=== PATIENT | female | born 1980 | race Caucasian/White ===

== ENCOUNTER 2017-09-15 17:31 | Inpatient (IN) | payer BC ==
--- NOTE | 2017-09-15 17:32 | HP ---
SUPERVISING PHYSICIAN: Danial Jaquez MD HISTORY OF PRESENT ILLNESS: This is a 37-year-old female who presented to the hospital as a direct admit. She states she went to the football game Thursday and felt okay. On Thursday, she began to have some congestion. This progressed to the point where she had some fever as well as a cough. She went to work at [employer] on Thursday, but felt really bad and, therefore, when she came home on Thursday, she went to see Dr. Jaquez in the clinic. He saw the patient and diagnosed her with upper respiratory infection and placed her on azithromycin. She did take one dose of azithromycin. Chest x-ray came back and showed a right middle lobe pneumonia. Once this was seen, Dr. Jaquez called the patient and she admitted to not feeling very good at all. At that point, it was decided she would be admitted to the hospital for right middle lobe pneumonia with failed outpatient therapy. At time of examination, the patient is alert and oriented. She is in no respiratory distress, however, does appear mildly ill. She states she feels really worn down and does admit to a productive cough, however, has not been able to produce a sputum for us of yet. PAST MEDICAL HISTORY: 1. Asthma. 2. Previous retinal detachment with subsequent cataract formation. 3. Pneumonia in the past. PAST SURGICAL HISTORY: 1. Cataract removal. 2. section. 3. Right ankle fracture repair. 4. Superficial clot to the left leg removal. 5. Reconstruction of her right foot. 6. Lap band. 7. Retinal detachment repair. CURRENT MEDICATIONS: 1. Breo Ellipta 200/25 mcg inhaled once daily. 2. Nexium 40 mg daily. 3. Lexapro 10 mg daily. 4. Xanax 0.5 mg 1 tablet in the AM and 2 at h.s. 5. Recently placed on cefdinir 300 mg b.i.d. for 7 days along with prednisone titrating dose and azithromycin pack. ALLERGIES: PENICILLIN. FAMILY HISTORY: Mother of lung cancer and also had type 2 diabetes as well as hypertension. Sister has hyperthyroidism and factor V Leiden. A son has asthma. A daughter is healthy. She has some aunts who have had breast cancer in the past. SOCIAL HISTORY: No smoking, occasional social drinking, no illicit drugs. REVIEW OF SYSTEMS: CONSTITUTIONAL: Positive for fever. No chills, no recent weight loss or weight gain. HEENT: No headache, vision changes. She has lots of nasal congestion. She has had a sore throat. RESPIRATORY: Positive for cough. No hemoptysis, no pleuritic chest pain, no dyspnea. CARDIOVASCULAR: No chest pain, palpitations or peripheral edema. GASTROINTESTINAL: No nausea, vomiting, diarrhea, constipation or abdominal pain. GENITOURINARY: No dysuria, frequency, or flank pain. MUSCULOSKELETAL: No back pain, neck pain or joint stiffness. SKIN: No rashes, lesions or wounds. NEUROLOGIC: No headaches, vision changes, or syncope. ENDOCRINE: No polydipsia, polyuria, polyphagia, no heat or cold intolerance. PHYSICAL EXAMINATION: VITAL SIGNS: Blood pressure 124/85. Heart rate 86. Respiratory rate 16. temperature 98.7. Oxygen saturation 97%. GENERAL: Ms. Velasco is a 37-year-old female who is acutely ill at this time. HEENT: Normocephalic, atraumatic. Pupils are equal and reactive. No nasal drainage. Throat with moist mucous membranes. NECK: Full. Midline trachea. No jugular venous distention. CHEST: Equal rise and fall of the chest with inspiration and expiration. Lung sounds are a little bit diminished in the bases, otherwise clear to auscultation bilaterally. CARDIOVASCULAR: Regular rate and rhythm. Normal S1, S2. ABDOMEN: Soft, positive bowel sounds. No tenderness to palpation. GENITOURINARY: Deferred. EXTREMITIES: Lower extremities show no edema. Pulses 2+ with capillary refill less than 2 seconds. NEUROLOGIC: The patient is alert and oriented. The patient moves all extremities. Extraocular muscles are intact. LABORATORY: Labs were repeated here and show white count 4.1, hemoglobin 13.6, platelet count 193. Sodium 135, potassium 3.6, chloride 103, CO2 25, BUN 13, creatinine 0.71, glucose 142, calcium 8.9. Chest x-ray reviewed shows a congested type presentation in the right middle lobe concerning for pneumonia. Flu screen done at the clinic yesterday was reportedly negative. ASSESSMENT: 1. Right middle lobe pneumonia, failed outpatient therapy. 2. Asthma without acute exacerbation. 3. Hyperglycemia without documented history of diabetes mellitus. PLAN: 1. At this time, we will treat the patient's pneumonia with ceftriaxone as well as Levaquin. We will monitor cultures and deescalate as possible. 2. Due to the fact that she is not active wheezing and moving air appropriately , we will not administer any kind of steroids at this time. 3. Regarding hyperglycemia, we will monitor this. If she continues to have high glucoses, we can start her on a sliding scale and get a hemoglobin A1c. Otherwise, she can work up for diabetes as an outpatient. 4. DVT and GI prophylaxis. [facility][id number]
[2017-09-15] MEDS ORDERED: SODIUM CHLORIDE 0.9% (FLUSH) 10 ML SYG IV PRN (17:46)
[2017-09-15] MEDS ORDERED: levoFLOXacin 750MG IV 750 MG in PREMIX BAG 1 BAG IVPB SCH (18:00)
[2017-09-15] MEDS ORDERED: IV SET AND CAP CHANGE INJ INJ SCH (18:00)
--- NOTE | 2017-09-15 18:02 | PCM.CORE ---
Physician DVT/VTE - Nurse DVT Assessment & Total Each Risk Factor Represents 3 Points: Family Hx thrombosis Each Risk Factor is 1 Point: Serious Lung disease (pnemonia <1month, COPD, emphysema,etc) DVT Assessment Score: 4 - 3-4 High Risk Treatments: Early Ambulation *, Sequential Compression Device - 5 or more Very High Risk Pharmacological: Enoxaparin 40mg SQ Daily
[2017-09-15] MEDS ORDERED: ENOXAPARIN SODIUM 40 MG/0.4 ML SYG SUBCU SCH (18:30)
[2017-09-15] MEDS ORDERED: cefTRIAXone SODIUM 1 GM VIAL ONE (19:53)
[2017-09-15] MEDS ORDERED: SODIUM CHL 0.9% 50ML MIN-BAG+ 50 ML IVPB ONE (19:53)
[2017-09-15] MEDS: cefTRIAXone SODIUM 1 GM in SODIUM CHL 0.9% 50ML MIN-BAG+ 50 ML IVPB SCH (20:29)
[2017-09-15] MEDS: ALBUTEROL SULFATE 2.5 MG/3 ML VIAL NEB SCH (21:03)
[2017-09-15] MEDS: LACTATED RINGERS 1,000 ML IVS PRN (21:09)
[2017-09-15] MEDS ORDERED: ALPRAZolam 0.5 MG TAB PO PRN (21:37)
[2017-09-16] MEDS: OMEPRAZOLE CAP 20 MG CAP PO SCH (06:40)
[2017-09-16] MEDS: LACTATED RINGERS 1,000 ML IVS PRN (07:17)
--- NOTE | 2017-09-16 07:20 | RAD ---
Procedure: XR CHEST 2 VIEWS Exam Date: 09/16/2017 Ordering Provider: Barrington Pérez Clinical Indication: Pneumonia Comparison: 09/14/2017 Findings: Cardiomediastinal silhouette: Unremarkable Pulmonary vasculature : Unremarkable Aortic contour: Unremarkable Focal lung consolidation: No focal lung consolidation. Pleural effusion: None Pneumothorax: None Bones and soft tissues: Nonacute Impression: 1. No focal lung consolidation. Electronically signed by: Herrera Quintanilla MD 09/16/2017 7:18 AM [facility]
[2017-09-16] MEDS: ALBUTEROL SULFATE 2.5 MG/3 ML VIAL NEB SCH ×4 (08:19→20:26)
[2017-09-16] MEDS ORDERED: KCL 20 MEQ/NS 1,000 ML IVS PRN (09:36)
[2017-09-16] MEDS: NON-FORMULARY MEDICATION 1 EA MIS (Fluticasone Furoate-Vilanterol [Breo Ellipta 100-25 Mcg IN SCH (16:17)
[2017-09-16] MEDS ORDERED: SODIUM CHL 0.9% 50ML MIN-BAG+ 50 ML IVPB ONE (18:04)
[2017-09-16] MEDS ORDERED: cefTRIAXone SODIUM 1 GM VIAL ONE (18:04)
[2017-09-16] MEDS: cefTRIAXone SODIUM 1 GM in SODIUM CHL 0.9% 50ML MIN-BAG+ 50 ML IVPB SCH (18:12)
[2017-09-16] MEDS ORDERED: levoFLOXacin 750MG IV 750 MG in PREMIX BAG 1 BAG IVPB SCH (19:00)
[2017-09-16] MEDS ORDERED: ENOXAPARIN SODIUM 40 MG/0.4 ML SYG SUBCU ONE (19:43)
[2017-09-16] MEDS ORDERED: ESCITALOPRAM 10 MG TAB ONE (19:43)
[2017-09-16] MEDS ORDERED: ENOXAPARIN SODIUM 40 MG/0.4 ML SYG SUBCU SCH (21:00)
[2017-09-16] MEDS ORDERED: ESCITALOPRAM 10 MG TAB PO SCH (21:00)
[2017-09-17 02:11] VITALS: O2SAT 98
[2017-09-17] MEDS: OMEPRAZOLE CAP 20 MG CAP PO SCH (06:10)
[2017-09-17 06:16] VITALS: BP 104/72; TEMP 98
[2017-09-17] MEDS: ALBUTEROL SULFATE 2.5 MG/3 ML VIAL NEB SCH (07:12)
[2017-09-17] MEDS: NON-FORMULARY MEDICATION 1 EA MIS (Fluticasone Furoate-Vilanterol [Breo Ellipta 100-25 Mcg IN SCH (07:12)
[2017-09-17] MEDS ORDERED: SODIUM CHLORIDE 0.9% (FLUSH) 10 ML SYG IV SCH (09:00)
--- NOTE | 2017-09-17 09:17 | DS ---
SUPERVISING PHYSICIAN: Danial Jaquez MD ADMISSION DIAGNOSIS: 1. Right middle lobe pneumonia, failed outpatient therapy. 2. Asthma without acute exacerbation. 3. Hyperglycemia. DISCHARGE DIAGNOSIS: 1. Right middle lobe pneumonia, failed outpatient therapy. 2. Asthma without exacerbation. 3. Hyperglycemia, improved. HOSPITAL COURSE: This is a 37-year-old female who presented to the hospital as a direct admit at the request of Dr. Jaquez. She had gone to a football game last Thursday and felt okay during that, but on Thursday, she began to have some chest congestion and progressively got worse to the point where she had some fever as well as a productive cough. She saw Dr. Jaquez on Thursday and had some labs as well as an x-ray. The x-ray was read the next day as having a right middle lobe pneumonia. She was called and requested to come as a direct admit to the hospital. She had felt worse from Thursday to Thursday at that point. She was admitted on 09/15/17 and started on Rocephin and Levaquin in the hospital. She was also started on nebulizer therapy. At the time of admission, she was not wheezing and, therefore, her steroids were not resumed. It was noted that she did have some hyperglycemia. However, she did receive an injectable corticosteroid in the office as well as placed on prednisone. Once again, due to the fact that she was not wheezing, this was not resumed. Subsequent labs were done the days she was in the hospital as well as chest x-ray. These did not worsen and she actually improved throughout the admission. The day of discharge, the patient feels a lot better. She is not having any fever or chills. Her white count is normal. She is not having any active wheezing at this time. CONDITION UPON DISCHARGE: Fair and stable. DISCHARGE ACTIVITY: As tolerated. DIET: As per usual diet. DISCHARGE MEDICATIONS: 1. Levaquin 750 mg for the next 3 days, then discontinue. 2. We will resume all other home medications at this point as well. Discharge appointment made with Dr. Jaquez on 09/21/17 at 11:15 in the morning. She may need a workup for diabetes at some point, but I do feel that her hyperglycemia here was mostly due to the steroids she was on. #[id number] [facility]
[2017-09-18] MEDS ORDERED: NON-FORMULARY MEDICATION 1 EA MIS (Fluticasone Furoate-Vilanterol [Breo Ellipta 100-25 Mcg INH SCH (08:00)
== END 2017-09-17 10:06 | disposition home or self-care (01) | DRG 195 ==
LOC: MS 17:31
PROVIDERS: ADMIT Nurse Practitioner Family; ATTEND Nurse Practitioner Family
DX: J18.9 Pneumonia, unspecified organism (principal); J45.909 Unspecified asthma, uncomplicated; R73.9 Hyperglycemia, unspecified; Z98.84 Bariatric surgery status; Z79.899 Other long term (current) drug therapy; Z88.0 Allergy status to penicillin

== ENCOUNTER → 2017-12-10 | Outpatient (CLI) | payer BC | LOC: GMA 16:45 | PROVIDERS: ATTEND Physician Assistant | DX: R93.8 Abnormal findings on diagnostic imaging of other specified body structures (principal) ==

== ENCOUNTER → 2017-12-11 | Outpatient (CLI) | payer BC ==
--- NOTE | 2017-12-11 08:55 | US ---
EXAM DESCRIPTION: Spleen ultrasound CLINICAL HISTORY: ABDOMINAL PN, HX RUPTURED SPLEEN COMPARISON: CT of the abdomen pelvis dated to July 2012 TECHNIQUE: 2-D and color flow sonography FINDINGS: The spleen is normal sonographically. No cyst mass or fracture is detected. No free fluid is observed. IMPRESSION: Normal sonography of the spleen. Electronically signed by: Jose Whatley MD 12/11/2017 8:54 AM [facility] [employer]
== END ==
LOC: US 07:59
PROVIDERS: ATTEND Physician Assistant
DX: R10.12 Left upper quadrant pain (principal)

== ENCOUNTER → 2018-02-17 | Outpatient (CLI) | payer BC | LOC: GMAHI 16:57 | PROVIDERS: ATTEND Nurse Practitioner Family | DX: R60.0 Localized edema (principal); E66.01 Morbid (severe) obesity due to excess calories ==

== ENCOUNTER → 2019-08-08 | Outpatient (CLI) | payer BC | LOC: GMAM 10:43 | PROVIDERS: ATTEND Family Medicine | DX: Z00.00 Encounter for general adult medical examination without abnormal findings (principal) ==

== ENCOUNTER 2020-08-23 16:50 | Inpatient (IN) | payer BC ==
[2020-08-23] MEDS ORDERED: AZITHROMYCIN IV 500 MG in SODIUM CHLORIDE 0.9% 250ML 250 ML IVPB ONE (17:04)
[2020-08-23] MEDS ORDERED: DEXAMETHASONE INJ 10 MG/ML VIAL IV ONE (17:04)
[2020-08-23] MEDS ORDERED: cefTRIAXone SODIUM 1 GM in SODIUM CHL 0.9% 50ML MIN-BAG+ 50 ML IVPB ONE (17:04)
[2020-08-23] MEDS ORDERED: IPRATROPIUM/ALBUTEROL 3 ML VIAL NEB ONE (17:31)
--- NOTE | 2020-08-23 17:47 | RAD ---
EXAM DESCRIPTION: Chest,1 View CLINICAL HISTORY: 40 years Female sob, norris COMPARISON: 09/16/2017. FINDINGS: The cardiomediastinal silhouette appears unremarkable. No consolidating infiltrates or pleural effusions. No pneumothorax. IMPRESSION: No acute abnormality is identified. Electronically signed by: Jose Alejandro Morrison MD 08/23/2020 5:45 PM [facility] [employer]
[2020-08-23] MEDS ORDERED: REMDESIVIR 200 MG in SODIUM CHLORIDE 0.9% 250ML 250 ML IVPB SCH (18:00)
[2020-08-23] MEDS ORDERED: ENOXAPARIN SODIUM 100 MG/ML SYG SUBCU ONE (18:47)
--- NOTE | 2020-08-23 19:27 | CT ---
PROCEDURE: CT Angiography Chest With Intravenous Contrast CLINICAL INDICATION: The patient is 40 years old and is Female; covid, elev ddimer, left sided rales, sob TECHNIQUE: Axial computed tomographic angiography images of the chest with intravenous contrast. This CT exam was performed using one or more of the following dose reduction techniques: automated exposure control, adjustment of the mA and/or kV according to patient size, and/or use of iterative reconstruction technique. MIP reconstructed images were created and reviewed. DLP: 752 mGy*cm COMPARISON: Chest radiograph of the same day. FINDINGS: PULMONARY ARTERIES: Limited evaluation of the pulmonary arterial tree due to poor bolus timing. No central or proximal segmental pulmonary embolus. AORTA: No acute findings. No thoracic aortic aneurysm. LUNGS: No groundglass opacity or focal consolidation. Mild subsegmental atelectasis in lung bases. 1.4 cm nodule is seen in the superior segment of the right lower lobe (series 2, image 43). Additional groundglass nodule measuring 4.5 mm in the left upper lobe (series 2, image 26). PLEURAL SPACE: Unremarkable. No significant effusion. No pneumothorax. HEART: Unremarkable. No cardiomegaly. No significant pericardial effusion. No evidence of RV dysfunction. MEDIASTINUM: Small hiatal hernia. BONES/JOINTS: No acute fracture. No dislocation. Mild osteopenia. SOFT TISSUES: Unremarkable. LYMPH NODES: Unremarkable. No enlarged lymph nodes. LIVER: Hepatic steatosis. IMPRESSION: 1. Limited evaluation of the pulmonary arterial tree due to poor bolus timing. No central or proximal segmental pulmonary embolus. 2. Imaging features are atypical or uncommonly reported for COVID-19 pneumonia. Alternative diagnoses should be considered. PneAty 3. Multiple pulmonary nodules measuring up to 1.4 cm. Consider a non-contrast Chest CT at 3 months, a PET/CT, or tissue sampling. 4. Hepatic steatosis. 5. Small hiatal hernia. Electronically signed by: Chase Mobley DO 08/23/2020 7:26 PM [employer]
--- NOTE | 2020-08-23 19:40 | ED.PDOC ---
History of Present Illness - General Chief Complaint: Respiratory Problem Stated Complaint: cough, SOB, chest tightness, body aches Time Seen by Provider: 08/23/20 17:02 Source: patient Exam Limitations: no limitations - History of Present Illness Initial Comments: The patient is a 40-year-old female presents emergency room after being sent over from the clinic secondary to a persistent asthma exacerbation, that appears to be driven by a coronavirus infection currently. She did test positive for it. The patient has significant increased work of breathing upon arrival here only able to speak 2 or 3 words at a time. She has a tripoding position. Audible wheezes without a stethoscope. Significantly decreased air movement. She denies any fever. She has had a mild sore throat a few days ago and a mild runny nose. She reports chest tightness with trying to breathe transiently. She reports increased back pain secondary to increased work of breathing over the next couple of days. Timing/Duration: other - 5 days in total Severity: severe Improving Factors: nothing Worsening Factors: nothing Associated Symptoms: chest pain, cough, malaise, shortness of breath Allergies/Adverse Reactions: Allergies Penicillins Allergy (Verified 05/29/16 15:58) Home Medications: Ambulatory Orders ALPRAZolam [Xanax] 0.5 mg PO BEDTIME PRN 05/29/16 Escitalopram [Lexapro] 10 mg PO BEDTIME 05/29/16 Fluticasone Furoate-Vilanterol [Breo Ellipta] 1 inh IN DAILY 09/15/17 Review of Systems - Review of Systems Constitutional: States: no symptoms reported EENTM: States: no symptoms reported Respiratory: States: see HPI Cardiology: States: no symptoms reported Gastrointestinal/Abdominal: States: no symptoms reported Genitourinary: States: no symptoms reported Musculoskeletal: States: back pain Skin: States: no symptoms reported Neurological: States: no symptoms reported Endocrine: States: no symptoms reported All other Systems: No Change from Baseline Past Medical History (General) - Patient Medical History Hx Seizures: No Hx Stroke: No Hx Asthma: Yes Hx of COPD: No Hx Congestive Heart Failure: No Hx Pacemaker: No Hx Hypertension: No Hx Diabetes: No Hx Cancer: No Hx Hepatitis C: No Hx MRSA: No - Vaccination History Hx Tetanus, Diphtheria Vaccination: No Hx Influenza Vaccination: Yes - Social History Hx Tobacco Use: No Hx Alcohol Use: Yes Hx Substance Use: No Hx Physical Abuse: No Hx Emotional Abuse: No - Female History Patient : No Family Medical History - Family History Mother Living Status: Hx Family Hypertension: Yes Hx Family Cancer: Yes Physical Exam - Physical Exam General Appearance: Alert, Anxious, Obvious distress Eye Exam: bilateral normal Ears, Nose, Throat: hearing grossly normal, nasal congestion, pharyngeal erythema Neck: full range of motion, supple, other - Significant accessory muscle use Respiratory: decreased breath sounds, accessory muscle use, rhonchi, wheezing Cardiovascular/Chest: normal peripheral pulses, no edema, tachycardia - Borderline Peripheral Pulses: radial,right: 2+, radial,left: 2+ Gastrointestinal/Abdominal: non tender - Obese, soft Rectal Exam: deferred Back Exam: no vertebral tenderness, other - Diffuse paraspinal muscle discomfort to palpation Extremity: normal range of motion, non-tender, normal inspection, no pedal edema, normal capillary refill Neurologic: automatic washer mechanic II-XII nml as tested, alert, normal mood/affect, oriented x 3 Skin Exam: normal color Comments: Vital Signs - 24 hr 08/23/20 08/23/20 08/23/20 17:01 17:23 17:50 Temperature 98.5 F Pulse Rate 94 H Pulse Rate [ 94 H Right Radial] Respiratory 24 22 20 Rate Blood Pressure 137/99 [Left Arm] O2 Sat by Pulse 97 96 Oximetry 08/23/20 08/23/20 18:00 19:00 Temperature Pulse Rate Pulse Rate [ 126 H 119 H Right Radial] Respiratory 22 18 Rate Blood Pressure 124/90 135/99 [Left Arm] O2 Sat by Pulse 99 98 Oximetry Progress - Progress Progress: 08/23/20 19:41 The patient is a 40-year-old female presenting with an acute coronavirus pneumonia and asthma exacerbation. The patient is being started on IV steroids and remdesivir. She is additionally been placed on Rocephin and azithromycin. Blood cultures have been done. The patient was also received several breathing treatments. This is helping reduce the respiratory distress. She still has significant increased work of breathing compared to baseline. She will be placed on low flow oxygen primarily for comfort. Admit for continued care and monitoring. If she continues to improve she may be able to go home tomorrow. The patient did receive a dose of Lovenox as well. CT angiogram of the chest was reassuring. Pulmonary nodules will need to be followed up in a few months. kortney seaman [id number] - Results/Orders Results/Orders: Chest x-ray shows no definitive pathology. CT angiogram of the chest shows no definitive pulmonary embolus. She does have a few pulmonary nodules that will need follow-up in 2 months. See report for details. Laboratory Tests 08/23/20 08/23/20 08/23/20 17:26 17:26 17:26 WBC 3.6 L RBC 4.75 Hgb 15.2 Hct 43.6 MCV 91.9 MCH 32.0 H MCHC 34.8 RDW 13.1 Plt Count 175 MPV 8.1 Absolute Neuts (auto) 2.00 Absolute Lymphs (auto) 1.10 Absolute Monos (auto) 0.40 Absolute Eos (auto) 0.00 Absolute Basos (auto) 0.00 Neutrophils % 56.7 Lymphocytes % 30.1 Monocytes % 11.3 H Eosinophils % 1.2 Basophils % 0.7 PT INR PTT (SP) Fibrinogen D-Dimer, Quantitative Sodium 139 Potassium 4.0 Chloride 103 Carbon Dioxide 25 Anion Gap 15.0 BUN 15 Creatinine 0.79 BUN/Creatinine Ratio 19.0 Random Glucose 84 Serum Osmolality 277.6 Lactic Acid Calcium 8.6 Magnesium 2.1 Ferritin 154.3 Total Bilirubin 0.7 AST 103 H ALT 150 H Alkaline Phosphatase 69 LD Total 176 Creatine Kinase 60 CK-MB (CK-2) 0.6 CK-MB (CK-2) % Not Reportable Troponin I < 0.02 C-Reactive Protein < 0.8 B-Natriuretic Peptide < 15.0 Serum Total Protein 7.8 Albumin 4.5 Globulin 3.3 Albumin/Globulin Ratio 1.4 Serum HCG, Qual 08/23/20 08/23/20 08/23/20 17:26 17:26 17:26 WBC RBC Hgb Hct MCV MCH MCHC RDW Plt Count MPV Absolute Neuts (auto) Absolute Lymphs (auto) Absolute Monos (auto) Absolute Eos (auto) Absolute Basos (auto) Neutrophils % Lymphocytes % Monocytes % Eosinophils % Basophils % PT 10.3 INR 1.04 PTT (SP) 23.3 Fibrinogen 332 D-Dimer, Quantitative 1250.0 H* Sodium Potassium Chloride Carbon Dioxide Anion Gap BUN Creatinine BUN/Creatinine Ratio Random Glucose Serum Osmolality Lactic Acid 1.1 Calcium Magnesium Ferritin Total Bilirubin AST ALT Alkaline Phosphatase LD Total Creatine Kinase CK-MB (CK-2) CK-MB (CK-2) % Troponin I C-Reactive Protein B-Natriuretic Peptide Serum Total Protein Albumin Globulin Albumin/Globulin Ratio Serum HCG, Qual Negative - EKG/XRAY/CT CT Ordered: No CT Interpretation Call Back: No Departure - Departure Clinical Impression: Pulmonary nodules, Pneumonia due to human coronavirus Asthma exacerbation Qualifiers: Asthma severity: severe Asthma persistence: persistent Qualified Code(s): J45.51 - Severe persistent asthma with (acute) exacerbation Disposition: Admit Patient Departure Forms: ED Discharge - Pt. Copy, Patient Portal Self Enrollment Referrals: Danial Seaman MD [Primary Care Provider] - 1-2 Weeks Home Medications: Ambulatory Orders ALPRAZolam [Xanax] 0.5 mg PO BEDTIME PRN 05/29/16 Escitalopram [Lexapro] 10 mg PO BEDTIME 05/29/16 Fluticasone Furoate-Vilanterol [Breo Ellipta] 1 inh IN DAILY 09/15/17 Decision To Admit - Decistion To Admit Decision to Admit Reason: Medical Nature Decision to Admit Date: 08/23/20 Decision to Admit Time: 19:43
--- NOTE | 2020-08-23 20:39 | HP ---
SUPERVISING PHYSICIAN: Danial Jaquez MD CHIEF COMPLAINT: Increase in asthma symptoms. HISTORY OF PRESENT ILLNESS: This is a 40-year-old female who came to the Emergency Room after being sent over from the clinic due to persistent asthma exacerbation. Over the last 24 hours she has had increased coughing, shortness of breath and wheezing. She does have a fairly significant history of asthma. It had worsened to the point today that she went to the clinic and they sent her to the Emergency Room. Initially, her vital signs showed a temperature of 98.5, heart rate 94, blood pressure 137/99, respiratory rate 24, oxygen saturation 96% on room air but she dropped to the upper 80s with any exertion. Lab studies showed a CBC that was basically unremarkable. D-dimer was 1,250. Electrolytes were basically within normal limits but she did have an elevated transaminase with an AST of 103 and ALT of 150. Her serum HCG was negative. Ferritin 154, lactic acid 1.1. Blood cultures were drawn. Chest x-ray showed no acute abnormality identified. CTA of the chest showed: 1. Limited evaluation of the pulmonary arteries due to poor bolus timing, no central or proximal segmental pulmonary embolus. 2. Imaging feature or atypical or uncommonly reported for Covid-19 pneumonia, alternative diagnosis should be considered. 3. Multiple pulmonary nodules measuring up to 1.4 cm, consider a noncontrast chest CT at 3 months or a PET/CT or tissue sampling. 4. Hepatic steatosis. 5. Small hiatal hernia. She was to get Remdesivir, steroids, azithromycin and Ceftriaxone in the Emergency Room and she was admitted to the hospital in stable condition. PAST MEDICAL HISTORY: 1. Asthma. 2. Previous retinal detachment with subsequent cataract formation. 3. Multiple hospitalizations for pneumonia in the past. PAST SURGICAL HISTORY: 1. Cataract removal. 2. section. 3. Right ankle fracture repair. 4. Superficial clot to the left leg that was removal. 5. Reconstruction of right foot. 6. Lap band. 7. Retinal detachment repair. CURRENT MEDICATIONS: Per the EMR awaiting verification. ALLERGIES: PENICILLIN. FAMILY HISTORY: Positive for lung cancer, type 2 diabetes, hypertension, hypothyroidism and factor V Leiden. SOCIAL HISTORY: She lives in [place], sees Dr. Jaquez as her primary care physician. 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 She denies tobacco or illicit drug use. She drinks alcohol socially. REVIEW OF SYSTEMS: Negative except as per history of present illness. PHYSICAL EXAMINATION: VITAL SIGNS: Temperature 98.2, heart rate 96, has gotten up as high as 119. Blood pressure 141/91, respiratory rate 18 to 22, oxygen saturation 98% on room air. She does drop to the upper 80s to low 90s with exertion. GENERAL: This is a 40 year-old female patient who is lying in her hospital bed. At rest, she is in no acute distress. On exertion, she is in mild respiratory distress. HEENT: Normocephalic, atraumatic. Pupils are equal and reactive. Oropharynx is clear. . NECK: Supple without mass. . CHEST: Essentially clear to auscultation bilaterally but somewhat diminished at the bases. She does get tachypneic with exertion and she does have to speak in 2 to 3-word phrases. CARDIOVASCULAR: Regular rate and rhythm, at times she is tachycardiac. ABDOMEN: Soft, nondistended, non-tender, positive bowel sounds. . EXTREMITIES: No cyanosis, clubbing, or edema. NEUROLOGIC: The patient is awake, alert and oriented x3. Cranial nerves II through XII are grossly intact as tested. LABORATORY: Labs and films are as per history of present illness. ASSESSMENT: 1. COVID-19 pneumonitis. 2. Acute exacerbation of persistent asthma. 3. Elevated LFTs. 4. Pulmonary nodules, largest measuring 1.4 cm. Will need followup in 3 months. PLAN: The patient has been admitted to the hospital. Covid guidelines have been initiated as well as the pneumonia guidelines. Will continue on the Remdesivir, azithromycin, Ceftriaxone, Decadron and albuterol both p.r.n. and scheduled. She will be on Lovenox for DVT prophylaxis. She will be on Protonix for ulcer prophylaxis. I have ordered labs for in the morning. We will monitor closely and follow as needed. #[id number] [facility]
[2020-08-23] MEDS ORDERED: ACETAMINOPHEN 325 MG TAB PO PRN (20:55)
[2020-08-23] MEDS ORDERED: ONDANSETRON INJ 4 MG/2 ML VIAL IV PRN (20:55)
[2020-08-23] MEDS ORDERED: SODIUM CHLORIDE 0.9% (FLUSH) 10 ML SYG IV PRN (20:55)
[2020-08-23] MEDS ORDERED: ALBUTEROL INHALER 64 PUFF/8GM INH PRN (20:58)
[2020-08-23] MEDS ORDERED: IV SET AND CAP CHANGE INJ INJ SCH (21:00)
[2020-08-24] MEDS: PANTOPRAZOLE SODIUM IV 40 MG VIAL IV SCH (05:52)
[2020-08-24] MEDS ORDERED: AZITHROMYCIN IV 500 MG VIAL IVPB ONE (08:36)
[2020-08-24] MEDS ORDERED: SODIUM CHLORIDE 0.9% 250ML 250 ML ONE (08:36)
[2020-08-24] MEDS ORDERED: SODIUM CHL 0.9% 50ML MIN-BAG+ 50 ML IVPB ONE (08:37)
[2020-08-24] MEDS ORDERED: cefTRIAXone SODIUM 1 GM VIAL ONE (08:37)
[2020-08-24] MEDS: DEXAMETHASONE INJ 10 MG/ML VIAL IV SCH (08:53)
[2020-08-24] MEDS: guaiFENesin ER TAB 600 MG TAB PO SCH ×2 (08:54→20:27)
[2020-08-24] MEDS: cefTRIAXone SODIUM 1 GM in SODIUM CHL 0.9% 50ML MIN-BAG+ 50 ML IVPB SCH (08:54)
[2020-08-24] MEDS: BIFIDOBACTERIUM INFANTIS 4 MG CAP PO SCH ×2 (08:54→20:27)
[2020-08-24] MEDS: ALBUTEROL INHALER 64 PUFF/8GM INH SCH ×4 (09:28→20:30)
[2020-08-24] MEDS: AZITHROMYCIN IV 500 MG in SODIUM CHLORIDE 0.9% 250ML 250 ML IVPB SCH (09:51)
[2020-08-24] MEDS: REMDESIVIR 100 MG in SODIUM CHLORIDE 0.9% 250ML 250 ML IVPB SCH (11:56)
[2020-08-24] MEDS ORDERED: ALPRAZolam 0.5 MG TAB PO PRN (13:33)
--- NOTE | 2020-08-24 19:03 | PN ---
SUPERVISING PHYSICIAN: Danial Jaquez MD DATE: 08.24.20 SUBJECTIVE: The patient still has a little bit of shortness of breath especially when she ambulates. She has a pretty significant cough and just a little short of breath but otherwise, she has no other complaints. OBJECTIVE: VITAL SIGNS: Temperature 97.6, pulse 76, blood pressure 130/89, respirations 20, oxygen saturation 98% on room air. GENERAL: The patient seems to be resting comfortably, in no acute distress. CHEST: Lung sounds are fairly clear, just a little diminished towards the bases. HEART: Regular rate and rhythm. ABDOMEN: Soft, non-tender, positive bowel sounds. EXTREMITIES: Without edema. NEUROLOGIC: Alert and oriented x 3. LABORATORY: White count 3,200, hemoglobin 14.3, hematocrit 44.8, platelet count 180,000. Differential does show a left shift. Coagulation studies: D-dimer is down to 851 today. Chemistries- normal electrolytes. AST is down to 65, ALT 124. RADIOLOGY: Repeat chest x-ray will be done tomorrow/ ASSESSMENT: 1. COVID-19 pneumonitis. 2. Acute exacerbation of persistent asthma. 3. Elevated LFTs. 4. Pulmonary nodules, largest measuring 1.4 cm. Will need followup in 3 months. PLAN: Will continue to treat the patient with Covid-19 guidelines. She remains on Remdesivir, azithromycin, Rocephin, Decadron, albuterol. She is also on Lovenox and Protonix and Align. I will follow her labs in the morning. Encouraged bronchial hygiene and hopefully we can discharge her in the next 24 to 48 hours. Until the, we will continue to monitor and treat as needed. [facility][id number] [facility]
[2020-08-24] MEDS ORDERED: ASPIRIN (ENTERIC COATED) 81 MG TAB PO ONE (19:38)
[2020-08-24] MEDS ORDERED: ESCITALOPRAM 10 MG TAB ONE (19:38)
[2020-08-24] MEDS ORDERED: ENOXAPARIN SODIUM 40 MG/0.4 ML SYG SUBCU ONE (19:39)
[2020-08-24] MEDS: ASPIRIN (ENTERIC COATED) 81 MG TAB PO SCH (20:27)
[2020-08-24] MEDS: ENOXAPARIN SODIUM 40 MG/0.4 ML SYG SUBCU SCH (20:27)
[2020-08-24] MEDS: ESCITALOPRAM 10 MG TAB PO SCH (20:27)
[2020-08-25] MEDS: PANTOPRAZOLE SODIUM IV 40 MG VIAL IV SCH (06:03)
[2020-08-25] MEDS: LEVOTHYROXINE SODIUM 0.025 MG TAB PO SCH (06:22)
--- NOTE | 2020-08-25 07:52 | RAD ---
: 1980. Technique: Portable AP upright chest x-ray. Comparison: August 23, 2020 chest x-ray and CT scan that showed multiple pulmonary nodules. Clinical history: covid. Heart size: Heart size is borderline enlarged unchanged after considering technical differences. Lungs: Shallower inspiration. No new infiltrates. Pulmonary nodules demonstrated at CT are not well seen radiographically. Pleura: No pleural effusion. No pneumothorax. Mediastinum and jennifer: Unremarkable. Skeletal: Unremarkable. Support tubings: None. Impression: 1. No acute changes in the chest. Electronically signed by: Colton Sr MD 08/25/2020 7:50 AM [employer] PREVENT[employer] AUDITOR
[2020-08-25] MEDS: cefTRIAXone SODIUM 1 GM in SODIUM CHL 0.9% 50ML MIN-BAG+ 50 ML IVPB SCH (08:01)
[2020-08-25] MEDS: BIFIDOBACTERIUM INFANTIS 4 MG CAP PO SCH ×2 (08:01→20:25)
[2020-08-25] MEDS: guaiFENesin ER TAB 600 MG TAB PO SCH ×2 (08:01→20:25)
[2020-08-25] MEDS: DEXAMETHASONE INJ 10 MG/ML VIAL IV SCH (08:01)
[2020-08-25] MEDS: ALBUTEROL INHALER 64 PUFF/8GM INH SCH ×4 (08:30→20:15)
[2020-08-25] MEDS ORDERED: LEVOTHYROXINE SODIUM 0.025 MG TAB PO SCH (09:00)
[2020-08-25] MEDS: REMDESIVIR 100 MG in SODIUM CHLORIDE 0.9% 250ML 250 ML IVPB SCH (09:30)
[2020-08-25] MEDS: AZITHROMYCIN IV 500 MG in SODIUM CHLORIDE 0.9% 250ML 250 ML IVPB SCH (09:52)
--- NOTE | 2020-08-25 16:08 | PN ---
SUPERVISING PHYSICIAN: Danial Jaquez MD DATE: 08.25.20 SUBJECTIVE: The patient still has a little bit of shortness of breath with exertion. Otherwise, she continues with a little cough, no other complaints. OBJECTIVE: VITAL SIGNS: She remains afebrile. Temperature 98.2, pulse 72, blood pressure 121/81, oxygen saturation 94% on room air at rest, desaturation down into 91 to 92 on ambulations. Respirations 16 to 7. GENERAL: The patient seems to be resting comfortably, in no acute distress. CHEST: Lung sounds are fairly clear, just a little diminished towards the bases. HEART: Regular rate and rhythm. ABDOMEN: Soft, non-tender, positive bowel sounds. EXTREMITIES: Without edema. NEUROLOGIC: Alert and oriented x 3. RADIOLOGY: Chest x-ray per radiology interpretation this morning of single view chest shows shallow inspiration, no new infiltrates, pulmonary nodules that were seen on CT were not seen well. No pleural effusions. No acute changes in the chest. ASSESSMENT: 1. COVID-19 pneumonitis. 2. Acute exacerbation of persistent asthma. 3. Elevated LFTs. 4. Pulmonary nodules, largest measuring 1.4 cm. Will need followup in 3 months. PLAN: Will continue with current plan of care at this point. She remains on Remdesivir, azithromycin, Rocephin, Decadron, albuterol, Lovenox, Protonix and Align. I have encouraged her to ambulate around the room, to get up to a chair and continue practicing good bronchial hygiene. Given her advanced asthma, I think at least another 24 hours of aggressive management is warranted given her history and hopefully we will be able to transition her to outpatient management within the next 24 to 48 hours. Until then, we will continue to monitor and treat as needed. #[id number] [facility]
[2020-08-25] MEDS: ESCITALOPRAM 10 MG TAB PO SCH (20:24)
[2020-08-25] MEDS: ASPIRIN (ENTERIC COATED) 81 MG TAB PO SCH (20:24)
[2020-08-25] MEDS: ENOXAPARIN SODIUM 40 MG/0.4 ML SYG SUBCU SCH (20:28)
[2020-08-26] MEDS: LEVOTHYROXINE SODIUM 0.025 MG TAB PO SCH (05:54)
[2020-08-26] MEDS: PANTOPRAZOLE SODIUM IV 40 MG VIAL IV SCH (05:54)
[2020-08-26] MEDS: ALBUTEROL INHALER 64 PUFF/8GM INH SCH ×2 (08:30→12:30)
[2020-08-26] MEDS: BIFIDOBACTERIUM INFANTIS 4 MG CAP PO SCH (08:37)
[2020-08-26] MEDS: REMDESIVIR 100 MG in SODIUM CHLORIDE 0.9% 250ML 250 ML IVPB SCH (08:37)
[2020-08-26] MEDS: DEXAMETHASONE INJ 10 MG/ML VIAL IV SCH (08:37)
[2020-08-26] MEDS: guaiFENesin ER TAB 600 MG TAB PO SCH (08:37)
[2020-08-26] MEDS: cefTRIAXone SODIUM 1 GM in SODIUM CHL 0.9% 50ML MIN-BAG+ 50 ML IVPB SCH (08:38)
[2020-08-26] MEDS: AZITHROMYCIN IV 500 MG in SODIUM CHLORIDE 0.9% 250ML 250 ML IVPB SCH (12:00)
[2020-08-26 13:37] VITALS: BP 105/70; TEMP 98; O2SAT 97
[2020-08-26] MEDS ORDERED: APIXABAN 5 MG TAB PO SCH (15:00)
[2020-08-26] MEDS ORDERED: APIXABAN 5 MG TAB PO ONE (15:01)
--- NOTE | 2020-08-27 08:42 | DS ---
SUPERVISING PHYSICIAN: Danial Jaquez MD ADMISSION DIAGNOSIS: 1. COVID-19 pneumonitis. 2. Acute exacerbation of persistent asthma. 3. Elevated liver function tests. 4. Pulmonary nodules, largest measuring 1.4 cm. Will need followup in 3 months. DISCHARGE DIAGNOSIS: 1. COVID-19 pneumonitis. 2. Acute exacerbation of persistent asthma. 3. Elevated liver function tests, probably due to an acute viral infection. Will need followup with Dr. Jaquez. 4. Pulmonary nodules as noted on CT. Will need followup with Dr. Jaquez. 5. History of Factor V Leiden deficiency with no mention of history of any deep venous thrombosis or pulmonary embolism with the patient being high risk, discharged on Eliquis to be followed up with Dr. Jaquez. REASON FOR HOSPITALIZATION: This is a 40-year-old female who came to the Emergency Room after being sent over from the clinic due to persistent asthma exacerbation. Over the last 24 hours she has had increased coughing, shortness of breath and wheezing. She does have a fairly significant history of asthma. It had worsened to the point today that she went to the clinic and they sent her to the Emergency Room. Initially, her vital signs showed a temperature of 98.5, heart rate 94, blood pressure 137/99, respiratory rate 24, oxygen saturation 96% on room air but she dropped to the upper 80s with any exertion. Lab studies showed a CBC that was basically unremarkable. D-dimer was 1,250. Electrolytes were basically within normal limits but she did have an elevated transaminase with an AST of 103 and ALT of 150. Her serum HCG was negative. Ferritin 154, lactic acid 1.1. Blood cultures were drawn. Chest x-ray showed no acute abnormality identified. CTA of the chest showed 1) Limited evaluation of the pulmonary arteries due to poor bolus timing, no central or proximal segmental pulmonary embolus. 2) Imaging feature or atypical or uncommonly reported for COVID-19 pneumonia, alternative diagnosis should be considered. 3) Multiple pulmonary nodules measuring up to 1.4 cm, consider a noncontrast chest CT at 3 months or a PET/CT or tissue sampling. 4) Hepatic steatosis. 5) Small hiatal hernia. She was to get Remdesivir, steroids, azithromycin and ceftriaxone in the Emergency Room and she was admitted to the hospital in stable condition. LABORATORY: White count 8,300 at discharge, hemoglobin 14.7, hematocrit 42.7, platelet count 202,000. Differential was without a left shift, but there was a low lymphocytic count. Coagulation studies initially showed D-dimer up to 1250 and down to 641 before discharge. PT/PTT were normal. Fibrinogen was normal. Liver function tests on discharged id show elevated liver functions with AST 66, ALT 250, but total bilirubin was normal. Alkaline phosphatase was normal at 60. Electrolytes were all within normal limits. Creatinine 0.76. Calcium and magnesium were normal. Serum HCG was negative. MICROBIOLOGY: Blood cultures were negative after 3 days. RADIOLOGY: She did have a CT of the chest on admission and per radiologic interpretation showed 1) Limited evaluation of the pulmonary arteries due to poor bolus timing, no central or proximal segmental pulmonary embolus. 2) Imaging feature or atypical or uncommonly reported for COVID-19 pneumonia. 3) Multiple pulmonary nodules measuring up to 1.4 cm, recommended 3 month followup. 4) Hepatic steatosis. 5) Small hiatal hernia. HOSPITAL COURSE: Ms. Velasco was admitted for COVID pneumonitis with exacerbation of her asthma secondary to COVID. She was started on aggressive treatment with Rocephin, azithromycin, Remdesivir, Decadron, Lovenox, Align, Protonix. She did well clinically and was not requiring any oxygen. After further discussion and examination, the patient was found to be clinically stable enough to discharge home. Vital signs on discharge showed she was afebrile at 98 with pulse 65, blood pressure 105/70, respirations 18, saturation 97-99% on room air. She was only marginally desaturating with any ambulation effort. PLAN: Ms. Velasco was discharged on 08/26/20 with instructions to call Dr. Jaquez's office on Thursday to schedule a followup appointment. She is to resume her usual diet as tolerated. She was to stay isolated as per instructions and wait until cleared by Dr. Jaquez before returning to work. MEDICATIONS PRESCRIBED ON DISCHARGE: 1. Align 4 mg twice daily. 2. Decadron 6 mg daily for 7 days, no refills. 3. Eliquis 5 mg twice daily, #28. She is to be refilled through Dr. Jaquez's office for continuation of treatment. 4. Guaifenesin 600 mg twice daily as needed. 5. Cefdinir 300 mg twice daily, #14, no refills. 6. Albuterol inhaler as needed 2 puffs q.4h. p.r.n. She was to resume all her previous medications as prior to hospitalization. CONDITION DISCHARGE: Stable and improving. DISPOSITION: The patient was discharged home. #[id number] [facility]
== END 2020-08-26 15:10 | disposition home or self-care (01) | DRG 177 ==
LOC: ER 16:50 → OBSVTOIN 20:38 → MS 20:38
PROVIDERS: ADMIT Nurse Practitioner Acute Care; ATTEND Nurse Practitioner Family
PROC: B32T1ZZ Computerized Tomography (CT Scan) of Left Pulmonary Artery using Low Osmolar Contrast (ICD-10-PCS; principal; 2020-08-23)
PROC: B32S1ZZ Computerized Tomography (CT Scan) of Right Pulmonary Artery using Low Osmolar Contrast (ICD-10-PCS; 2020-08-23)
PROC: XW033E5 Introduction of Remdesivir Anti-infective into Peripheral Vein, Percutaneous Approach, New Technology Group 5 (ICD-10-PCS; 2020-08-23)
DX: U07.1 COVID-19 (principal); J12.89 Other viral pneumonia; J45.31 Mild persistent asthma with (acute) exacerbation; D68.2 Hereditary deficiency of other clotting factors; R74.8 Abnormal levels of other serum enzymes; R91.8 Other nonspecific abnormal finding of lung field; Z98.84 Bariatric surgery status; Z86.718 Personal history of other venous thrombosis and embolism; Z88.0 Allergy status to penicillin; Z79.899 Other long term (current) drug therapy